=== PATIENT | female | born 1955 | race Caucasian/White ===

== ENCOUNTER → 2018-03-13 | Outpatient (CLI) | payer OTHER | END | disposition home or self-care (01) | LOC: LAB SHORT 16:20 → OLS 16:20 | PROVIDERS: Nurse Practitioner Women's Health | DX: Z12.4 Encounter for screening for malignant neoplasm of cervix (principal); Z91.89 Other specified personal risk factors, not elsewhere classified | CPT/HCPCS: 87624; G0123 ==

== ENCOUNTER → 2021-12-29 | Outpatient (CLI) | payer MEDICARE, OTHER | END | disposition home or self-care (01) | LOC: LAB SHORT 12:27 → PLD 12:27 | DX: C44.311 Basal cell carcinoma of skin of nose (principal); L81.4 Other melanin hyperpigmentation | CPT/HCPCS: 88305 ==

== ENCOUNTER → 2023-09-06 | Outpatient (CLI) | payer MEDICARE, OTHER ==
[2023-09-06 15:56] LABS: BASOPHILS ABSOLUTE AUTO 0.03 K/mm3 (0.00-0.23); BASOPHILS PERCENT AUTO 1 % (0-2); EOSINOPHILS ABSOLUTE AUTO 0.09 K/mm3 (0.00-0.68); EOSINOPHILS PERCENT AUTO 1 % (0-6); Hematocrit 42.7 % (33.0-51.0); Hemoglobin 14.3 g/dL (11.5-16.0); IMMATURE GRAN ABSOLUTE AUTO 0.01 K/mm3 (0.00-0.10); IMMATURE GRAN PERCENT AUTO 0 % (0-1); LYMPHOCYTES ABSOLUTE AUTO 1.16 K/mm3 (0.84-5.20); LYMPHOCYTES PERCENT AUTO 18 % (21-46); MONOCYTES ABSOLUTE AUTO 0.35 K/mm3 (0.16-1.47); MONOCYTES PERCENT AUTO 6 % (4-13); Mean Corpuscular HGB 32.4 pg (26.0-34.0); Mean Corpuscular HGB Conc 33.5 g/dL (31.5-36.5); Mean Corpuscular Volume 97 fL (80-100); Mean Platelet Volume 10.1 fL (9.1-12.4); NEUTROPHILS ABSOLUTE AUTO 4.66 K/mm3 (1.96-9.15); NEUTROPHILS PERCENT AUTO 74 % (41-73); Platelet Count 243 K/mm3 (150-400); RDW Coefficient Variation 11.9 % (11.7-14.2); RDW Standard Deviation 42.5 fL (35.1-46.3); Red Blood Cell Count 4.42 M/mm3 (3.80-5.20)
[2023-09-06 17:59] LABS: Alanine Aminotransfer (ALT/SGP 17 U/L (12-78); Albumin, Blood 4.1 g/dL (3.4-5.0); Albumin/Globulin Ratio 1.2 (0.8-1.8); Alk Phos 66 U/L (50-136); Anion Gap 3 mmol/L (6-16); Aspartate Aminotrans (AST/SGOT 22 U/L (12-37); Bilirubin, Total 0.4 mg/dL (0.1-1.0); Blood Urea Nitrogen 14 mg/dL (8-24); Bun/Creatinine Ratio 22.3 (12.0-20.0); CHOL/HDL RATIO 3.1; CO2, Blood 31 mmol/L (21-32); Calcium, Blood 9.6 mg/dL (8.5-10.1); Chloride, Blood 103 mmol/L (98-108); Cholesterol 200 mg/dL (50-200); Creatinine, Blood 0.63 mg/dL (0.40-1.00); Globulin, Blood 3.5 g/dL (2.2-4.0); Glomerular Filtration Rate 97 (60-); Glucose, Blood 103 mg/dL (70-99); HDL Cholesterol 64 mg/dL (>39); LDL/HDL RATIO 1.8; Low Density Lipoprotein Chol 117 mg/dL (0-110); Potassium, Blood 3.7 mmol/L (3.5-5.5); Sodium, Blood 137 mmol/L (136-145); Total Protein, Blood 7.6 g/dL (6.4-8.2); Triglycerides 96 mg/dL (30-160); Very Low Density Lipoprot Chol 19 mg/dL (6-32)
[2023-09-07 18:18] LABS: HEPATITIS C AB CIA INTERP Negative (Negative); HEPATITIS C ANTIBODY CIA INDEX 0.09 IV
[2023-09-07 19:49] LABS: HIV 1,2 COMBO ANTIGEN/ANTIBODY Negative (Negative)
== END | disposition home or self-care (01) ==
LOC: LAB 14:32 → LAB SHORT 14:32
PROVIDERS: Family Medicine
DX: Z00.00 Encounter for general adult medical examination without abnormal findings (principal); Z11.59 Encounter for screening for other viral diseases; Z13.6 Encounter for screening for cardiovascular disorders
CPT/HCPCS: 80053; 80061; 85025; 86803; 87389

== ENCOUNTER → 2024-04-25 | Outpatient (CLI) | payer MEDICARE ==
[2024-04-26 09:34] LABS: Bacterial Vaginosis PCR Negative (NEGATIVE); Candida Group, PCR NOT DETECTED (NOT DETECT); Candida glabrata-krusei, PCR NOT DETECTED (NOT DETECT)
== END | disposition home or self-care (01) ==
LOC: LAB 17:03 → LAB SHORT 17:03
PROVIDERS: Obstetrics & Gynecology
DX: N95.2 Postmenopausal atrophic vaginitis (principal)
CPT/HCPCS: 87481; 87661; 87801

== ENCOUNTER 2025-06-18 07:58 | Day surgery (SDC) | payer MEDICARE ==
[2025-05-30 10:46] VITALS: BP 123/52
[2025-06-18] VITALS (9 sets, daily range): BP systolic 97–120; BP diastolic 52–64
[~2025-06-18] VITALS: Ht 165.1 cm; Wt 54.6 kg
[~2025-06-18 07:58] MED LIST: ESTRADIOL42.5 GM VAG; Estrace Vagin42.5 GM VAG; Garlic500 MG PO; ISOPTO ATROPINE RIGHTEYE; LIDO5TO TOP; PRED FORTE5 M1 RIGHTEYE; Vitamin D1000 UNI1; [UNRECOGNIZED DRUG - OTHER]
[2025-06-18] MEDS ORDERED: Ropivacaine 0.5% HCl/Pf 123.125 MG,EPINEPHrine HCL 0.25 MG,Ketorolac Tromethamine 15 MG... INFIL SCH (08:35)
[2025-06-18] MEDS ORDERED: Tranexamic Acid 100 ML IV SCH (08:35)
[2025-06-18] MEDS ORDERED: CeFAZolin Sodium 2,000 MG in NS 100 ML IV SCH ×2 (08:35→19:00)
[2025-06-18] MEDS ORDERED: Chlorhexidine Mouth Care 15 ML UDC MT SCH (08:35)
[2025-06-18] MEDS ORDERED: Ondansetron HCl 2 MG / ML 2ML Vial IV PRN ×2 (09:10→09:40)
[2025-06-18] MEDS ORDERED: Metoclopramide HCl 5MG / ML 2ML Vial IV PRN ×2 (09:10→09:40)
[2025-06-18] MEDS ORDERED: Morphine Sulfate 4 MG/1 ML Injection IV PRN (09:10)
[2025-06-18] MEDS ORDERED: FentaNYL Citrate 50 MCG/ML 2 ML Injection IV PRN ×2 (09:10)
[2025-06-18] MEDS ORDERED: HYDROmorphone HCl/Pf 1MG SYR IV PRN ×2 (09:10→09:50)
--- NOTE | 2025-06-18 09:26 | NUR ---
Ambulatory in Day Surgery WITH STEADY GAIT. History, Chart, Medications and Allergies reviewed before start of procedure. Pre-Op teaching done. Pt verbalizes understanding. Patient States Post-Procedure ride home has been arranged WITH DAUGHTER. ALL BELONGINGS PLACED UNDER GURN IN PT BELONGING BAG, SHOES ARE OUTSIDE OF BAG UNDER BED. DAUGHTER IS AT BEDSIDE. WARM BLANKET PROVIDED, CALL LIGHT IN REACH.
[2025-06-18] MEDS ORDERED: Ondansetron HCl 2 MG / ML 2ML Vial ONE (09:35)
[2025-06-18] MEDS ORDERED: Metoclopramide HCl 5MG / ML 2ML Vial ONE (09:35)
[2025-06-18] MEDS ORDERED: Magnesium Sulfate 500 MG / ML 2ML Vial ONE (09:38)
[2025-06-18] MEDS ORDERED: Estradiol Vag Cream 0.1 MG/G 42.5 GM Tube VAG SCH (09:40)
[2025-06-18] MEDS ORDERED: Magnesium Hydroxide Conc 10 ML UDC PO PRN (09:40)
[2025-06-18] MEDS ORDERED: HYDROmorphone HCl/Pf 1MG SYR ONE (09:49)
[2025-06-18] MEDS ORDERED: Midazolam HCl 1MG / ML 2ML Vial ONE (09:50)
[2025-06-18] MEDS ORDERED: FLU VACC TS2025(65UP)/MF59C/PF 45 MCG/0.5 ML SYRINGE IM SCH (10:00)
[2025-06-18] MEDS ORDERED: Prochlorperazine Edisylate 10 mg Vial IV PRN (10:05)
[2025-06-18] MEDS ORDERED: Phenylephrine HCl 100 MCG/ML-NS 10MLSYR (1MG/10ML) ONE (11:30)
[2025-06-18] MEDS ORDERED: Ketorolac Tromethamine 15mg Vial IV SCH (12:00)
[2025-06-18] MEDS ORDERED: ASPI81CH PO (16:59)
--- NOTE | 2025-06-18 17:35 | NUR ---
DC INSTRUCT REVIEWED. STATED UNDERSTANDING. DISCHARGED TO POV WITH PRINTED INSTRUCT.
[2025-06-19] MEDS ORDERED: OPTH RIGHTEYE SCH (09:00)
[2025-06-19] MEDS ORDERED: PrednisoLONE 1% Opth Susp 5 ML RIGHTEYE SCH (09:00)
[2025-06-19] MEDS ORDERED: PILOCARPINE 1% RIGHTEYE SCH (09:00)
[2025-06-21] MEDS ORDERED: Estradiol Vag Cream 0.1 MG/G 42.5 GM Tube VAG SCH (21:00)
== END 2025-06-18 17:50 | disposition home or self-care (01) ==
LOC: ORSCMMR 07:58 → ORD 09:15 → ORSCMMR 09:15 → SURS 12:03 → ORSCMMR 17:50
PROVIDERS: Orthopaedic Surgery
PROC: 0SR90JZ Replacement of Right Hip Joint with Synthetic Substitute, Open Approach (ICD-10-PCS; principal; 2025-06-18 09:15)
DX: M16.11 Unilateral primary osteoarthritis, right hip (principal)
CPT/HCPCS: 72170; 97110; 97116; 97161; 97530; A9270; C1776; J0166; J0690; J0735; J0780; J1171; J1885; J2250; J2371; J2405; J2704; J2765; J2795; J3475; J7120